=== PATIENT | male | born 1995 | race Caucasian/White ===

== ENCOUNTER 2017-03-15 13:15 | Emergency (ER) | payer OTHER ==
--- NOTE | 2017-03-15 14:57 | ED NURSING NOTES ---
Clinical Report - Nurses [facility] [address] [place] [address] 03/15/2017 13:16 [id number] TRI[facility] Triage time 13:19. Acuity: LEVEL 3. Chief Complaint: INJURY TO THE RIGHT ELBOW. Alert. No acute distress. STEVO COMA SCORE: [place] Coma Scale: 15- eyes open spontaneously (4); best verbal response- oriented x 4 (5); best motor response- obeys commands (6). --13:24 Tomasa Pinto R.N. 13:19 03/15/17. BP: 117/67. HR: 101. RR: 18. O2 saturation: 97%. Temp: 97.8 F (oral). Pain level now: 09/06. --13:24 Tomasa Pinto R.N. Weight: 70.3 kg stated. Height/Length: 72 inches Per Patient. BMI: 21. --13:20 Tomasa Pinto R.N. Medications Ibuprofen Oral. --13:20 Tomasa Pinto R.N. Medication/allergy information source: the patient. --13:24 Tomasa Pinto R.N. Allergies No Known Drug Allergy. --13:20 Tomasa Pinto R.N. History Arrived by private vehicle. Historian: patient. Accompanied by family. Primary physician (Elieser Rogers). This occurred just prior to arrival. He sustained a laceration from a sharp edge. PAST MEDICAL HX: Tetanus status: up-to-date. Last tetanus: (2016). SOCIAL HX: Smoker- current status unknown (chews). Never smoker. Occasional alcohol use. No drug use. FALL RISK ASSESSMENT: Fall risk assessment completed. No fall risk identified. FUNCTIONAL ASSESSMENT: Functional assessment: no impairments noted. LEARNING NEEDS ASSESSMENT: The learning needs assessment revealed no barriers. --13:24 Tomasa Pinto R.N. PROBLEMS: no known problems. ADDITIONAL SURGERIES: I&D. Nose. --13:21 Blair, Tomasa, R.N. Assessment GENERAL / NEURO / PSYCH: Alert. Oriented X 4. Appears in no acute distress. Patient appears calm and cooperative. RESPIRATORY: Respirations not labored. SKIN: Skin is warm and dry. --13:24 Tomasa Pinto R.N. Interventions ID band on patient. To treatment room. --13:24 Tomasa Pinto R.N. PHYSICAL ASSESSMENT 13:27 03/15/17. Ambulatory to room. GENERAL / NEURO / PSYCH: Oriented X 4. Alert. Appears in no acute distress. EXTREMITIES: Right elbow: laceration. SKIN: Skin is warm and dry. Laceration. --13:27 Tomasa Pinto R.N. NURSING PROGRESS NOTES 13:27 03/15/17. Call light placed in reach. Side rails up x 1. Bed placed in lowest position. Brakes of bed on. --13:27 Tomasa Pinto R.N. Applied bulky dressing consisting of 4x4 gauze, following the application of antibiotic ointment. Secured with kerlix (to right arm). --14:59 Marybeth Berman, Tech1. DISPOSITION / DISCHARGE Departure time: 15:Mar 15 2017. Condition at departure: improved. No learning barriers present. Discharge instructions provided and reviewed with the patient. Reviewed referral to a primary care physician for followup. Patient verbalized understanding. Written instructions provided in East [place]orese. The patient was discharged home and accompanied by slab miller operator. He left the Emergency Department ambulatory and via private vehicle. [employer] driving. FALL RISK ASSESSMENT: Fall risk assessment completed. No fall risk identified. --15:17 Lilia Montesinos R.N. 15:16 03/15/17. BP: 127/70. HR: 77. RR: 16. O2 saturation: 100%. Pain level now: 09/06. --15:17 Lilia Montesinos R.N. Locked/Released at 03/17/2017 13:18 by Lilia Montesinos R.N.
--- NOTE | 2017-03-15 14:57 | ED CLINICAL REPORT ---
Clinical Report - Physicians/Mid Levels [facility] [address] [place] [address] 03/15/2017 13:16 Patient: RUT SWEET Time Seen: 14:22; initial patient contact, initial documentation, patient care assumed. Arrived- By private vehicle. Historian- patient. HISTORY OF PRESENT ILLNESS Chief Complaint: Injury to the right elbow. The injury happened just prior to arrival. The patient sustained a laceration from a sharp edge (piece of metal). Occurred at work. Patient is experiencing mild pain. Patient denies injury to the head or neck. No other injury. REVIEW OF SYSTEMS The patient sustained a laceration. No swelling, numbness, weakness or suspected foreign body. All systems otherwise negative, except as recorded above. PAST HISTORY See nurses notes. PROBLEMS: no known problems. ADDITIONAL SURGERIES: I&D. Nose. --13:21 Tomasa Pinto R.N. The patient's dominant hand is the right. Tetanus immunization status is up-to-date. SOCIAL HISTORY Smoker- current status unknown (chews). Never smoker. Occasional alcohol use. No drug use. No recent travel. Is a local resident. FAMILY HISTORY No significant family medical history. ADDITIONAL NOTES The nursing notes have been reviewed with agreement regarding the chief complaint, HPI, ROS, PMH and patient medications and allergies. PHYSICAL EXAM Vital Signs: 03/15/2017 13:19 BP: 117/67. HR: 101. RR: 18. O2 saturation: 97%. Temp: 97.8 F. Pain level now: 09/06. Have been reviewed as normal and appear to be correct. Appearance: Alert. Oriented X3. No acute distress. Head: Head atraumatic. Eyes: Pupils equal, round and reactive to light. Eyes normal inspection. Respiratory: No respiratory distress. Skin: Skin intact. Skin warm and dry. Normal skin color. Normal skin turgor. Extremities: Right elbow: subcutaneous 1.5 cm laceration located in the area of the radial head. SEE LACERATION PROCEDURE NOTE #1. Neurovascular intact distally. No erythema, tenderness, swelling, abrasion or ecchymosis. No puncture wound, foreign body or deformity. No joint effusion or limitation in ROM. Upper extremity otherwise negative. Extremities otherwise negative. Neuro, Vascular and Tendons: Vascular status intact. Sensation intact. Motor intact. Tendon function intact. Neuro: Oriented X 3. No motor deficit. No sensory deficit. Note: isolated injury to elbow. PROGRESS AND PROCEDURES Laceration Repair: Location: right elbow. Length: 1.5cm. Complexity: simple (stapled). Wound depth/shape- subcutaneous and linear and involving fascia. Wound is clean. No contamination, foreign body or contused tissue present. No tissue loss. Distal neuro/vascular/tendon status normal. Tendon not examined. No tendon deficit or laceration or tendon injury. Prepped with Betadine. Wound explored, cleansed, irrigated and examined to the base in bloodless field with normal saline. Wound not debrided. No foreign material removed. Closure of superficial layer: (2 rasta). Post-procedure: he is stable and there are no complications. Bleeding is controlled and neuro-vascular status is intact distal to the wound. Dressing applied. (per staff, see other notes). Tetanus immunization up-to-date. Estimated blood loss: 2 mL. Course of Care: friend had phone out talking about the videos he saw with medical procedures on facebook and internet, during procedure, saw his phone pointed my way, told him camera had to be off, and he didn't ask my permission to film me, responded he wasn't recording, he was on [employer], asked him to turn phone around because it was still pointed in my directed, camera on, recording in place, told him he was busted and asked him to put it away tech and staff warned about friends camera 14:58 03/15/17. L&I paperwork completed. Patient counseled in person regarding the patient's stable condition and diagnosis. Differential Diagnosis: Other possible considerations: lac, fb, tendon injury. Above considerations are based on history and physical exam. Differential diagnosis was discussed with patient. Disposition: Discharged home in good and improved condition (14:56). Condition: good and stable. CLINICAL IMPRESSION Single deep laceration to the right elbow.Treatment of laceration not delayed. No infection or foreign body present. INSTRUCTIONS Protect wound and keep wound area clean. Soak in warm soapy water twice daily. Apply neosporin twice daily. [place] should be removed in ten days. Warnings: GENERAL WARNINGS: Return or contact your physician immediately if your condition worsens or changes unexpectedly, if not improving as expected, or if other problems arise. Specifically return if problem worsens. Follow-up: Follow up with your doctor in about three days as needed and for wound check. Call for an appointment. Summary of care provided to patient. Understanding of the discharge instructions verbalized by patient. (Electronically signed by Carrie De Guzman A.R.N.P. 03/15/2017 20:04)
--- NOTE | 2017-03-15 14:57 | ED NURSING NOTES ---
Clinical Report - Nurses [facility] [address] [place] [address] 03/15/2017 13:16 [id number] TRI[facility] Triage time 13:19. Acuity: LEVEL 3. Chief Complaint: INJURY TO THE RIGHT ELBOW. Alert. No acute distress. STEVO COMA SCORE: [place] Coma Scale: 15- eyes open spontaneously (4); best verbal response- oriented x 4 (5); best motor response- obeys commands (6). --13:24 Tomasa Pinto R.N. 13:19 03/15/17. BP: 117/67. HR: 101. RR: 18. O2 saturation: 97%. Temp: 97.8 F (oral). Pain level now: 09/06. --13:24 Tomasa Pinto R.N. Weight: 70.3 kg stated. Height/Length: 72 inches Per Patient. BMI: 21. --13:20 Tomasa Pinto R.N. Medications Ibuprofen Oral. --13:20 Tomasa Pinto R.N. Medication/allergy information source: the patient. --13:24 Tomasa Pinto R.N. Allergies No Known Drug Allergy. --13:20 Tomasa Pinto R.N. History Arrived by private vehicle. Historian: patient. Accompanied by family. Primary physician (Elieser Rogers). This occurred just prior to arrival. He sustained a laceration from a sharp edge. PAST MEDICAL HX: Tetanus status: up-to-date. Last tetanus: (2016). SOCIAL HX: Smoker- current status unknown (chews). Never smoker. Occasional alcohol use. No drug use. FALL RISK ASSESSMENT: Fall risk assessment completed. No fall risk identified. FUNCTIONAL ASSESSMENT: Functional assessment: no impairments noted. LEARNING NEEDS ASSESSMENT: The learning needs assessment revealed no barriers. --13:24 Tomasa Pinto R.N. PROBLEMS: no known problems. ADDITIONAL SURGERIES: I&D. Nose. --13:21 Blair, Tomasa, R.N. Assessment GENERAL / NEURO / PSYCH: Alert. Oriented X 4. Appears in no acute distress. Patient appears calm and cooperative. RESPIRATORY: Respirations not labored. SKIN: Skin is warm and dry. --13:24 Tomasa Pinto R.N. Interventions ID band on patient. To treatment room. --13:24 Tomasa Pinto R.N. PHYSICAL ASSESSMENT 13:27 03/15/17. Ambulatory to room. GENERAL / NEURO / PSYCH: Oriented X 4. Alert. Appears in no acute distress. EXTREMITIES: Right elbow: laceration. SKIN: Skin is warm and dry. Laceration. --13:27 Tomasa Pinto R.N. NURSING PROGRESS NOTES 13:27 03/15/17. Call light placed in reach. Side rails up x 1. Bed placed in lowest position. Brakes of bed on. --13:27 Tomasa Pinto R.N. Applied bulky dressing consisting of 4x4 gauze, following the application of antibiotic ointment. Secured with kerlix (to right arm). --14:59 Marybeth Berman, Tech1. DISPOSITION / DISCHARGE Departure time: 15:Mar 15 2017. Condition at departure: improved. No learning barriers present. Discharge instructions provided and reviewed with the patient. Reviewed referral to a primary care physician for followup. Patient verbalized understanding. Written instructions provided in Cypriot. The patient was discharged home and accompanied by vegetable loader machine operator. He left the Emergency Department ambulatory and via private vehicle. Electronics Assembler driving. FALL RISK ASSESSMENT: Fall risk assessment completed. No fall risk identified. --15:17 Lilia Montesinos R.N. 15:16 03/15/17. BP: 127/70. HR: 77. RR: 16. O2 saturation: 100%. Pain level now: 09/06. --15:17 Lilia Montesinos R.N. Locked/Released at 03/17/2017 13:18 by Lilia Montesinos R.N.
--- NOTE | 2017-03-15 14:57 | ED CLINICAL REPORT ---
Clinical Report - Physicians/Mid Levels [facility] [address] [place] [address] 03/15/2017 13:16 Patient: RUT SWEET Time Seen: 14:22; initial patient contact, initial documentation, patient care assumed. Arrived- By private vehicle. Historian- patient. HISTORY OF PRESENT ILLNESS Chief Complaint: Injury to the right elbow. The injury happened just prior to arrival. The patient sustained a laceration from a sharp edge (piece of metal). Occurred at work. Patient is experiencing mild pain. Patient denies injury to the head or neck. No other injury. REVIEW OF SYSTEMS The patient sustained a laceration. No swelling, numbness, weakness or suspected foreign body. All systems otherwise negative, except as recorded above. PAST HISTORY See nurses notes. PROBLEMS: no known problems. ADDITIONAL SURGERIES: I&D. Nose. --13:21 Tomasa Pinto R.N. The patient's dominant hand is the right. Tetanus immunization status is up-to-date. SOCIAL HISTORY Smoker- current status unknown (chews). Never smoker. Occasional alcohol use. No drug use. No recent travel. Is a local resident. FAMILY HISTORY No significant family medical history. ADDITIONAL NOTES The nursing notes have been reviewed with agreement regarding the chief complaint, HPI, ROS, PMH and patient medications and allergies. PHYSICAL EXAM Vital Signs: 03/15/2017 13:19 BP: 117/67. HR: 101. RR: 18. O2 saturation: 97%. Temp: 97.8 F. Pain level now: 09/06. Have been reviewed as normal and appear to be correct. Appearance: Alert. Oriented X3. No acute distress. Head: Head atraumatic. Eyes: Pupils equal, round and reactive to light. Eyes normal inspection. Respiratory: No respiratory distress. Skin: Skin intact. Skin warm and dry. Normal skin color. Normal skin turgor. Extremities: Right elbow: subcutaneous 1.5 cm laceration located in the area of the radial head. SEE LACERATION PROCEDURE NOTE #1. Neurovascular intact distally. No erythema, tenderness, swelling, abrasion or ecchymosis. No puncture wound, foreign body or deformity. No joint effusion or limitation in ROM. Upper extremity otherwise negative. Extremities otherwise negative. Neuro, Vascular and Tendons: Vascular status intact. Sensation intact. Motor intact. Tendon function intact. Neuro: Oriented X 3. No motor deficit. No sensory deficit. Note: isolated injury to elbow. PROGRESS AND PROCEDURES Laceration Repair: Location: right elbow. Length: 1.5cm. Complexity: simple (stapled). Wound depth/shape- subcutaneous and linear and involving fascia. Wound is clean. No contamination, foreign body or contused tissue present. No tissue loss. Distal neuro/vascular/tendon status normal. Tendon not examined. No tendon deficit or laceration or tendon injury. Prepped with Betadine. Wound explored, cleansed, irrigated and examined to the base in bloodless field with normal saline. Wound not debrided. No foreign material removed. Closure of superficial layer: (2 rasta). Post-procedure: he is stable and there are no complications. Bleeding is controlled and neuro-vascular status is intact distal to the wound. Dressing applied. (per staff, see other notes). Tetanus immunization up-to-date. Estimated blood loss: 2 mL. Course of Care: friend had phone out talking about the videos he saw with medical procedures on facebook and internet, during procedure, saw his phone pointed my way, told him camera had to be off, and he didn't ask my permission to film me, responded he wasn't recording, he was on [employer], asked him to turn phone around because it was still pointed in my directed, camera on, recording in place, told him he was busted and asked him to put it away tech and staff warned about friends camera 14:58 03/15/17. L&I paperwork completed. Patient counseled in person regarding the patient's stable condition and diagnosis. Differential Diagnosis: Other possible considerations: lac, fb, tendon injury. Above considerations are based on history and physical exam. Differential diagnosis was discussed with patient. Disposition: Discharged home in good and improved condition (14:56). Condition: good and stable. CLINICAL IMPRESSION Single deep laceration to the right elbow.Treatment of laceration not delayed. No infection or foreign body present. INSTRUCTIONS Protect wound and keep wound area clean. Soak in warm soapy water twice daily. Apply neosporin twice daily. [place] should be removed in ten days. Warnings: GENERAL WARNINGS: Return or contact your physician immediately if your condition worsens or changes unexpectedly, if not improving as expected, or if other problems arise. Specifically return if problem worsens. Follow-up: Follow up with your doctor in about three days as needed and for wound check. Call for an appointment. Summary of care provided to patient. Understanding of the discharge instructions verbalized by patient. (Electronically signed by Carrie D eGuzman A.R.N.P. 03/15/2017 20:04)
--- NOTE | 2017-03-17 13:18 | ED MAR SUMMARY ---
..... Medication Administration Record [facility] [address] [place], [place] [id number] Patient: RUT SWEET Visit ID: [id number] 21y, M Weight: 70.3 kg Height/Length: 72 in BMI: 21 ALLERGIES: No Known Drug Allergy
--- NOTE | 2017-03-17 13:18 | ED MAR SUMMARY ---
..... Medication Administration Record [facility] [address] [place], [place] [id number] Patient: RUT SWEET Visit ID: [id number] 21y, M Weight: 70.3 kg Height/Length: 72 in BMI: 21 ALLERGIES: No Known Drug Allergy
--- NOTE | 2017-03-17 13:18 | ED DISCHARGE INSTRUCTIONS ---
Patient: RUT SWEET General Instructions [facility] VisitID: [id number] [place] [address] 21y, M Registration Date/Time: 03/15/2017 Single deep laceration to the right elbow.Treatment of laceration not delayed. No infection or foreign body present. INSTRUCTIONS Protect wound and keep wound area clean. Soak in warm soapy water twice daily. Apply neosporin twice daily. [place] should be removed in ten days. Warnings: GENERAL WARNINGS: Return or contact your physician immediately if your condition worsens or changes unexpectedly, if not improving as expected, or if other problems arise. Specifically return if problem worsens. Follow-up: Follow up with your doctor in about three days as needed and for wound check. Call for an appointment. Summary of care provided to patient. Understanding of the discharge instructions verbalized by patient. ADDITIONAL INFORMATION Laceration (All Closures) Alaceration is a cut through the skin. This will usually require stitches (sutures) or gus if it is deep. Minor cuts may be treated with a surgical tape closure orskin glue. Home care The following guidelines will help you care for your laceration at home: Extremity, face, or trunk wounds Keep the wound clean and dry. If a bandage was applied and it becomes wet or dirty, replace it. Otherwise, leave it in place for the first 24 hours. If stitches or gus were used, clean the wound daily. After removing the bandage, wash the area with soap and water. Use a wet cotton swab to loosen and remove any blood or crust that forms. The doctor may prescribe an antibiotic cream or ointment to prevent infection. Do not stop taking this medication until you have finished the prescribed course or the doctor tells you to stop. The doctor may also prescribe medications for pain. Follow the doctors instructions for taking these medications. You may remove the bandage to shower as usual after the first 24 hours, but do not soak the area in water (no swimming) until the stitches or gus are removed. If surgical tape was used, keep the area clean and dry. If it becomes wet, blot it dry with a towel. If skin glue was used, do not scratch, rub, or pick at the adhesive film. Do not place tape directly over the film. Do not apply liquid, ointment, or creams to the wound while the film is in place. Do not clean the wound with peroxide and do not apply ointments. Avoid activities that cause heavy sweating until the film has fallen off. Protect the wound from prolonged exposure to sunlight or tanning lamps. You may shower as usual but do not soak the wound in water (no baths or swimming). The film will fall off by itself in 510 days. Scalp wounds During the first two days, you may carefully rinse your hair in the shower to remove blood, glass or dirt particles. After two days, you may shower and shampoo your hair normally. Do not soak your scalp in the tub or go swimming until the stitches or gus have been removed. Talk with your doctor before applying any antibiotic ointment to the wound. Mouth wounds Eat soft foods to reduce pain. If the cut is inside of your mouth, clean by rinsing after each meal and at bedtime with a mixture of equal parts water and hydrogen peroxide (do not swallow!). Or, you can use a cotton swab to directly apply hydrogen peroxide onto the cut. Mouth wounds can be painful when eating. You may use an [id number] local numbing solution for pain relief. If this is not available, you may use any numbing solution for teething babies. You may apply this directly to the sores with a cotton-tip swab or with your finger. Follow-up care Follow up with your health care provider. Most skin wounds heal within ten days. Mouth and facial wounds heal within five days. However, even with proper treatment, a wound infection may sometimes occur. Therefore, you should check the wound daily for signs of infection listed below. Stitches should be removed from the face within five days; stitches and gus should be removed from other parts of the body within 714 days. If dissolving stitches were used in the mouth, these will fall out or dissolve without the need for removal. If tape closures were used, remove them yourself if they have not fallen off after 7 days. Ifskin glue was used, the film will fall off by itself in 510 days. When to seek medical care Get prompt medical attention if any of these occur: Bleeding not controlled by direct pressure Signs of infection, including increasing pain in the wound, increasing wound redness or swelling, or pus coming from the wound Fever of 100.4F (38C) or higher, or as directed by your health care provider Stitches or gus come apart or fall out or surgical tape falls off before 7 days Wound edges re-open You have been given the following additional information: Laceration, All (Electronically signed by Carrie De Guzman A.R.N.P. 03/15/2017 20:04)
--- NOTE | 2017-03-17 13:18 | ED MED RECONCILIATION SUMMARY ---
Patient: GORDON SWEETER Wan Medication Reconciliation Report [facility] VisitID: [id number] [address] [place] [place] [address] 21y, M Registration Date/Time: 03/15/2017 Weight: 70.3 kg Height/Length: 72 in. BMI: 21.0 ALLERGIES: No Known Drug Allergy The patient's Home Medications are listed below: THE FOLLOWING MEDICATIONS NEED TO BE RECONCILED: Ibuprofen Oral The source(s) of the original Home Medication information: patient The following Medications were given to the patient in the Emergency Department: None. The following Medications were prescribed to the patient: None.
--- NOTE | 2017-03-17 13:18 | ED MED RECONCILIATION SUMMARY ---
Patient: GORDON SWEETER Wan Medication Reconciliation Report [facility] VisitID: [id number] [address] [place] [place] [address] 21y, M Registration Date/Time: 03/15/2017 Weight: 70.3 kg Height/Length: 72 in. BMI: 21.0 ALLERGIES: No Known Drug Allergy The patient's Home Medications are listed below: THE FOLLOWING MEDICATIONS NEED TO BE RECONCILED: Ibuprofen Oral The source(s) of the original Home Medication information: patient The following Medications were given to the patient in the Emergency Department: None. The following Medications were prescribed to the patient: None.
== END 2017-03-15 15:15 | disposition home or self-care (01) ==
LOC: ED SRH 13:15
DX: S51.011A Laceration without foreign body of right elbow, initial encounter (principal); W26.8XXA Contact with other sharp object(s), not elsewhere classified, initial encounter; Y93.89 Activity, other specified; Y92.89 Other specified places as the place of occurrence of the external cause; Y99.0 Civilian activity done for income or pay
CPT/HCPCS: 81663